=== PATIENT | female | born 1940 | race Caucasian/White ===

== ENCOUNTER 2022-08-01 13:36 | Inpatient (IN) | payer MEDICARE ==
[~2022-08-01 13:36] MED LIST: Iopamidol-370 76% 500 ML 1 ML ONE
[2022-08-01 14:46] LABS: #Lymphocytes 0.8 thou/uL (1.20-3.40); #Monocytes 1.2 thou/uL (0.11-0.59); #Neutrophils 16.8 thou/uL (1.40-6.50); %Basophils 0.1 % (0.0-1.0); %Eosinophils 0.1 % (0.0-10.0); %Monocytes 6.2 % (0.0-10.0); %Neutrophils 89.5 % (42.0-75.0); Hemoglobin 13.1 g/dL (12.0-16.0); Mean Corpuscular HGB CONC 31.3 g/dL (32.0-36.0); Mean Corpuscular Hemoglobin 31.4 pg (27.0-31.0); Mean Platelet Volume 8.3 fL (7.4-10.4); Platelet Count 253 10x3/uL (130-400); RBC Distribution Width 13.1 % (11.5-14.5); Red Blood Cell (RBC) Count 4.19 mill/uL (4.20-5.40); White Blood Cell (WBC) Count 18.8 10x3/uL (4.8-10.8)
[2022-08-01 15:09] LABS: ALT (SGPT) 12 U/L (8-55); AST (SGOT) 28 U/L (5-34); Albumin 3.6 g/dL (3.4-4.8); Alkaline Phosphatase 104 U/L (40-110); Anion Gap 14 mmol/L (10-20); BUN (Urea Nitrogen) 34 mg/dL (9.8-20.1); Calc. Creatinine Clearance 0 mL/min (70-130); Calcium 9.1 mg/dL (7.8-10.44); Carbon Dioxide 24 mmol/L (23-31); Chloride 95 mmol/L (98-107); Estimated GFR 62; Globulin 4.7 g/dL (2.4-3.5); Glucose 91 mg/dL (83-110); Lipase 24 U/L (8-78); Magnesium 1.9 mg/dL (1.6-2.6); Potassium 4.2 mmol/L (3.5-5.1); Protein, Total 8.3 g/dL (5.8-8.1); Sodium 129 mmol/L (136-145)
[2022-08-01] MEDS ORDERED: Albuterol 2.5 MG/0.5 ML NEB ONE ×2 (15:24→15:54)
[2022-08-01] MEDS ORDERED: Ipratropium Bromide 2.5 ml Neb ONE (15:24)
[2022-08-01] MEDS ORDERED: Dexamethasone 10 MG/ML VIAL ONE (15:24)
[2022-08-01] MEDS ORDERED: Ondansetron PF 4 MG/2 ML Vial ONE (15:24)
[2022-08-01] MEDS ORDERED: Aspirin Chewable 81 MG TAB ONE (15:24)
[2022-08-01] MEDS ORDERED: Ipratropium/Albuterol 3 ML NEB ONE (15:54)
[2022-08-01 16:46] LABS: SARS-CoV-2 NAA Rapid Test Not Detected (NotDetected)
[2022-08-01] MEDS ORDERED: Azithromycin 500 MG VIAL ONE (16:50)
[2022-08-01] MEDS ORDERED: cefTRIAXone\\ROCEPHIN 2 GM VIAL ONE (16:50)
[2022-08-01 16:54] LABS: Bilirubin Negative (Negative); Blood, Urine 2+ (Negative); Clarity Turbid (Clear); Glucose, Urine (Dipstick) Normal (Negative); Ketone, Urine 10 mg/dL (Negative); Leukocyte Negative Leu/uL (Negative); Nitrite Negative (Negative); Protein, Urine (Dipstick) 70 mg/dL (Neg-Trace); Specific Gravity, Urine 1.034 (1.002-1.036); Squamous Epithelial None Seen HPF (0-3); Urobilinogen Normal mg/dL (Less than 2); WBC/HPF 0-3 HPF (0-3); pH, Urine 5.5 (5.0-9.0)
[2022-08-01 16:55] LABS: Bacteria/HPF 1+ HPF (None Seen)
[2022-08-01] MEDS ORDERED: Ondansetron PF 4 MG/2 ML Vial IVP PRN (17:32)
[2022-08-01] MEDS ORDERED: Acetaminophen 325 MG TAB PO PRN (17:32)
[2022-08-01] MEDS ORDERED: Ondansetron ODT 4 MG TAB PO PRN (17:32)
[2022-08-01] MEDS ORDERED: Guaifenesin DM 100-10/5 ML UDCUP PO PRN (17:39)
[2022-08-01] MEDS: Sodium Chloride 0.9% 1,000 ML IV SCH (18:10)
[2022-08-01 18:13] LABS: Troponin I Less than 0.010 ng/mL (< 0.028)
[2022-08-01] MEDS ORDERED: Famotidine/PF 20 mg/2ml Vial SLOW IVP SCH (21:00)
[2022-08-01 21:02] LABS: Troponin I Less than 0.010 ng/mL (< 0.028)
[2022-08-01] MEDS: Doxycycline 100 MG in Sodium Chloride 0.9% 100 ML IVPB SCH (21:53)
[2022-08-02 05:12] LABS: #Lymphocytes 0.4 thou/uL (1.20-3.40); #Monocytes 0.6 thou/uL (0.11-0.59); #Neutrophils 14.4 thou/uL (1.40-6.50); %Basophils 0.1 % (0.0-1.0); %Eosinophils 0.2 % (0.0-10.0); %Lymphocytes 2.7 % (21.0-51.0); %Monocytes 3.9 % (0.0-10.0); %Neutrophils 93.2 % (42.0-75.0); Hemoglobin 11.9 g/dL (12.0-16.0); Mean Corpuscular HGB CONC 31.9 g/dL (32.0-36.0); Mean Corpuscular Hemoglobin 32.7 pg (27.0-31.0); Mean Platelet Volume 8.6 fL (7.4-10.4); Platelet Count 230 10x3/uL (130-400); Red Blood Cell (RBC) Count 3.63 mill/uL (4.20-5.40); White Blood Cell (WBC) Count 15.5 10x3/uL (4.8-10.8)
[2022-08-02 05:32] LABS: Anion Gap 14 mmol/L (10-20); BUN (Urea Nitrogen) 30 mg/dL (9.8-20.1); Calc. Creatinine Clearance 44 mL/min (70-130); Calcium 7.8 mg/dL (7.8-10.44); Carbon Dioxide 17 mmol/L (23-31); Chloride 106 mmol/L (98-107); Estimated GFR 86; Glucose 149 mg/dL (83-110); Potassium 4.1 mmol/L (3.5-5.1); Sodium 133 mmol/L (136-145)
[2022-08-02] MEDS: Sodium Chloride 0.9% 1,000 ML IV SCH (06:28)
[2022-08-02] MEDS ORDERED: Ipratropium/Albuterol 3 ML NEB NEB PRN (08:06)
[2022-08-02] MEDS ORDERED: Mometasone 100 MCG/Formoterol 5 MCG 120 PUFF INHALER INH SCH (09:15)
[2022-08-02] MEDS: Doxycycline 100 MG in Sodium Chloride 0.9% 100 ML IVPB SCH ×2 (09:34→20:48)
[2022-08-02] MEDS: Famotidine/PF 20 mg/2ml Vial SLOW IVP SCH (09:38)
[2022-08-02] MEDS: guaiFENesin/DM ER PO SCH ×3 (09:38→20:49)
[2022-08-02] MEDS ORDERED: predniSONE 20 MG TAB PO SCH (14:00)
[2022-08-02 15:56] VITALS: BMI 16.2
[2022-08-02] MEDS ORDERED: cefTRIAXone\\ROCEPHIN 1 GM in Sodium Chloride 0.9% 100 ML IVPB SCH (17:00)
[2022-08-02] MEDS: Ipratropium/Albuterol 3 ML NEB NEB SCH (18:40)
[2022-08-02] MEDS: Mometasone 100 MCG/Formoterol 5 MCG 120 PUFF INHALER INH SCH (18:47)
[2022-08-03] MEDS: Ipratropium/Albuterol 3 ML NEB NEB SCH ×3 (00:30→13:22)
[2022-08-03 02:39] LABS: #Lymphocytes 0.6 thou/uL (1.20-3.40); #Monocytes 0.6 thou/uL (0.11-0.59); #Neutrophils 12.1 thou/uL (1.40-6.50); %Basophils 0.1 % (0.0-1.0); %Eosinophils 0.1 % (0.0-10.0); %Lymphocytes 4.2 % (21.0-51.0); %Monocytes 4.5 % (0.0-10.0); %Neutrophils 91.2 % (42.0-75.0); Hemoglobin 11.1 g/dL (12.0-16.0); Mean Corpuscular HGB CONC 32.3 g/dL (32.0-36.0); Mean Platelet Volume 8.8 fL (7.4-10.4); Platelet Count 257 10x3/uL (130-400); RBC Distribution Width 13.1 % (11.5-14.5); Red Blood Cell (RBC) Count 3.34 mill/uL (4.20-5.40); White Blood Cell (WBC) Count 13.3 10x3/uL (4.8-10.8)
[2022-08-03 03:00] LABS: Anion Gap 11 mmol/L (10-20); BUN (Urea Nitrogen) 29 mg/dL (9.8-20.1); Carbon Dioxide 20 mmol/L (23-31); Chloride 109 mmol/L (98-107); Potassium 3.7 mmol/L (3.5-5.1); Sodium 136 mmol/L (136-145)
[2022-08-03 03:01] LABS: Calc. Creatinine Clearance 44 mL/min (70-130); Estimated GFR 84; Glucose 174 mg/dL (83-110)
[2022-08-03] MEDS ORDERED: predniSONE 20 MG TAB PO SCH (08:00)
[2022-08-03] MEDS: Mometasone 100 MCG/Formoterol 5 MCG 120 PUFF INHALER INH SCH (08:05)
[2022-08-03] MEDS: guaiFENesin/DM ER PO SCH (08:25)
[2022-08-03] MEDS: Famotidine/PF 20 mg/2ml Vial SLOW IVP SCH (08:25)
[2022-08-03] MEDS: Doxycycline 100 MG in Sodium Chloride 0.9% 100 ML IVPB SCH (09:31)
[2022-08-03 13:13] VITALS: BP 119/80; TEMP 97.7
== END 2022-08-03 14:22 | disposition home health service (06) | DRG 871 ==
LOC: ERS 13:36 → 2SW 17:14
PROVIDERS: ADMIT Internal Medicine; ATTEND Family Medicine
DX: A41.9 Sepsis, unspecified organism (principal); J15.9 Unspecified bacterial pneumonia; J44.1 Chronic obstructive pulmonary disease with (acute) exacerbation; J44.0 Chronic obstructive pulmonary disease with (acute) lower respiratory infection; E87.1 Hypo-osmolality and hyponatremia; Z20.822 Contact with and (suspected) exposure to COVID-19; F17.210 Nicotine dependence, cigarettes, uncomplicated; Z60.2 Problems related to living alone; E86.0 Dehydration; A08.4 Viral intestinal infection, unspecified; Z90.710 Acquired absence of both cervix and uterus; Z80.3 Family history of malignant neoplasm of breast; Z82.49 Family history of ischemic heart disease and other diseases of the circulatory system; Z71.6 Tobacco abuse counseling; Z88.5 Allergy status to narcotic agent
CPT/HCPCS: 36415; 51701; 71045; 74177; 80048; 80053; 81003; 81015; 83605; 83690; 83735; 83880; 84484; 85025; 87040; 87086; 93005; 94640; 96361; 96365; 96367; 96375; J0456; J0696; J1100; J1650; J2405; J3490; J7050; J7512; J7611; J7620; Q9967; S0028

== ENCOUNTER 2023-03-21 09:41 | Outpatient (CLI) | payer MEDICARE | END 2023-03-21 09:42 | disposition home or self-care (01) | LOC: RAD 09:41 | PROVIDERS: ATTEND Internal Medicine Critical Care Medicine | DX: R06.00 Dyspnea, unspecified (principal); J44.9 Chronic obstructive pulmonary disease, unspecified | CPT/HCPCS: 71046 ==